=== PATIENT | female | born 2000 | race American Indian/Alaskan Native ===

== ENCOUNTER 2021-08-21 23:48 | Emergency (ER) | payer OTHER ==
[2021-08-22 00:24] VITALS: BP 128/80
[2021-08-22] MEDS ORDERED: IBUPROFEN 600 MG TAB PO ONE (01:17)
[2021-08-22] MEDS ORDERED: diazePAM 5 MG TAB PO ONE (01:17)
[2021-08-22] MEDS ORDERED: ACETAMINOPHEN 500 MG TAB PO ONE (01:17)
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
== END 2021-08-22 03:10 | disposition home or self-care (01) ==
LOC: ED 23:48
DX: S16.1XXA Strain of muscle, fascia and tendon at neck level, initial encounter (principal); M62.830 Muscle spasm of back; V89.2XXA Person injured in unspecified motor-vehicle accident, traffic, initial encounter; Y93.89 Activity, other specified; Y92.89 Other specified places as the place of occurrence of the external cause; Y99.8 Other external cause status
CPT/HCPCS: 99283